=== PATIENT | male | born 1980 | race Caucasian/White ===

== ENCOUNTER 2023-02-02 19:12 | Emergency (ER) | payer OTHER ==
[2023-02-02 19:21] VITALS: BMI 26.6
[2023-02-02] MEDS ORDERED: SODIUM CHLORIDE 0.9% 500 ML INFUS.BAG IV ONE (20:03)
[2023-02-02] MEDS ORDERED: ACETAMINOPHEN 1000 MG/100 ML BAG IVPB ONE (20:03)
[2023-02-02] MEDS ORDERED: ACETAMINOPHEN INJECTION 100 ML IVPB ONE (20:20)
[2023-02-02] MEDS ORDERED: CLINDAMYCIN 600MG PREMIX IVPB 600 MG/50 ML BAG IVPB ONE ×2 (20:33→21:09)
[2023-02-02 20:51] LABS: BASO % 0.3 % (0-2.0); EOS % 0.5 % (0-4.5); HEMATOCRIT 43.8 % (35.4-49); HEMOGLOBIN 14.6 GM/dL (11.7-16.9); LYMPH % 9.5 % (8-40); MCH 26.4 pg (25.7-33.7); MCHC 33.2 g/dl (32.0-35.9); MEAN CELL VOLUME 79.5 fl (80-96); MEAN PLT VOLUME 8.6 fl (7.5-11.1); MONO % 11.8 % (3.8-10.2); NEUT % 77.9 % (42.8-82.8); PLATELET COUNT 183 10^3/uL (134-434); RBC 5.52 M/mm3 (4.00-5.60); RDW 13.1 % (11.9-15.9); WHITE BLOOD COUNT 6.9 K/mm3 (4.0-10.0)
[2023-02-02 21:10] LABS: POTASSIUM 3.8 mmol/L (3.5-5.1)
[2023-02-02 21:12] LABS: CALCIUM 8.6 mg/dL (8.5-10.1)
[2023-02-02 21:13] LABS: BLOOD UREA NITROGEN 11.9 mg/dL (7-18)
[2023-02-02 21:17] LABS: BILIRUBIN,TOTAL 0.3 mg/dL (0.2-1); TOT PROT 7.9 g/dl (6.4-8.2)
[2023-02-02 21:19] LABS: VENOUS BASE EXCESS -1.2 mmol/L (-2-2); VENOUS O2 SATURATION 80.1 % (70-80); VENOUS PH 7.396 (7.310-7.410)
[2023-02-02 22:51] VITALS: BP 135/100; PULSE 108; RESP 22; TEMP 99.2
== END 2023-02-02 22:54 | disposition home or self-care (01) ==
LOC: JER 19:12
PROC: 3E03329 Introduction of Other Anti-infective into Peripheral Vein, Percutaneous Approach (ICD-10-PCS; principal; 2023-02-02)
PROC: 3E033NZ Introduction of Analgesics, Hypnotics, Sedatives into Peripheral Vein, Percutaneous Approach (ICD-10-PCS; 2023-02-02)
DX: R05.9 Cough, unspecified (principal); M79.10 Myalgia, unspecified site; R68.83 Chills (without fever); R50.9 Fever, unspecified; R19.7 Diarrhea, unspecified; R10.9 Unspecified abdominal pain; J10.1 Influenza due to other identified influenza virus with other respiratory manifestations; M71.051 Abscess of bursa, right hip; Z20.822 Contact with and (suspected) exposure to COVID-19
CPT/HCPCS: 0241U-QW; 36415; 80053; 82803; 83605; 85025; 87040; 93005; 93010; 99284-25

== ENCOUNTER 2023-10-31 13:48 | Emergency (ER) | payer OTHER ==
[2023-10-31 14:05] VITALS: BP 156/94; RESP 20; TEMP 98.5; BMI 24.3
[2023-10-31] MEDS ORDERED: diphenhydrAMINE HCL 25 MG CAPSULE (FP) PO ONE (15:27)
[2023-10-31] MEDS ORDERED: FAMOTIDINE 20 MG TABLET ONE (15:27)
[2023-10-31] MEDS: FAMOTIDINE 20 MG TABLET PO ONE (15:32)
[2023-10-31] MEDS: diphenhydrAMINE HCL 25 MG CAPSULE (FP) PO ONE (15:32)
[2023-10-31 16:07] VITALS: PULSE 106
== END 2023-10-31 16:25 | disposition home or self-care (01) ==
LOC: JER 13:48 → JERFT 13:48
DX: S40.861A Insect bite (nonvenomous) of right upper arm, initial encounter (principal); S40.862A Insect bite (nonvenomous) of left upper arm, initial encounter; L29.9 Pruritus, unspecified; W57.XXXA Bitten or stung by nonvenomous insect and other nonvenomous arthropods, initial encounter
CPT/HCPCS: 99283-25